=== PATIENT | female | born 1995 | race African-American/Black ===

== ENCOUNTER 2018-04-07 23:25 | Emergency (ER) | payer SELFPAY ==
[~2018-04-07] VITALS: Ht 154.9 cm; Wt 49.9 kg
[2018-04-07 23:40] VITALS: BP 118/48
[2018-04-07] MEDS ORDERED: ALBUTEROL SULF8.5 GM INH (23:55)
[2018-04-08 00:03] VITALS: BP 123/80
--- NOTE | 2018-04-08 01:23 | Emergency Room Report ---
History of Present Illness General Chief Complaint: Medical Clearance Source: Patient Present Illness HPI 22-year-old female presents ED for assisted clearance. Patient is in [employer] custody. Patient was brought to ER because she complains of a "lung problems". States that she has bronchitis. States that she coughs all the time. Denies coughing at this time. Denies history of asthma. Denies history of smoking. Denies chest pain or shortness of breath. Denies fevers or chills. No other aggravating relieving factors. Denies any other associated symptoms Allergies: Coded Allergies: No Known Allergies (Unverified , 04/07/18) Patient History Past Medical History: none Past Surgical History: none Pertinent Family History: none Social History: Denies: smoking, alcohol use, drug use Last Menstrual Period: 03/24/2018 Now: No : 0 Para: 0 Immunizations: UTD Reviewed Nursing Documentation: PMH: Agreed; PSxH: Agreed Nursing Documentation-PMH Past Medical History: No History, Except For Hx Asthma: No - Pulmonary Emboli, Bronchitis Review of Systems All Other Systems: negative except mentioned in HPI Physical Exam Vital Signs Date Time Temp Pulse Resp B/P (MAP) Pulse Ox O2 Delivery O2 Flow Rate FiO2 04/07/18 23:28 98.4 90 14 118/48 95 98.4 Sp02 EP Interpretation: reviewed, normal General Appearance: no apparent distress, alert, GCS 15, non-toxic Head: normocephalic, atraumatic Eyes: bilateral eye normal inspection, bilateral eye PERRL ENT: hearing grossly normal, normal pharynx, no angioedema, normal voice Neck: full range of motion, supple/symm/no masses Respiratory: chest non-tender, lungs clear, normal breath sounds, speaking full sentences Cardiovascular #1: regular rate, rhythm, no edema Cardiovascular #2: 2+ carotid (R), 2+ carotid (L), 2+ radial (R), 2+ radial (L) , 2+ dorsalis pedis (R), 2+ dorsalis pedis (L) Gastrointestinal: normal bowel sounds, non tender, soft, non-distended, no guarding, no rebound Rectal: deferred Genitourinary: normal inspection, no CVA tenderness Musculoskeletal: back normal, gait/station normal, normal range of motion, non- tender Neurologic: alert, oriented x3, responsive, motor strength/tone normal, sensory intact, speech normal Psychiatric: judgement/insight normal, memory normal, mood/affect normal, no suicidal/homicidal ideation Reflexes: 3+ bicep (R), 3+ bicep (L), 3+ tricep (R), 3+ tricep (L), 3+ knee (R) , 3+ knee (L) Skin: normal color, no rash, warm/dry, well hydrated Lymphatic: no adenopathy Medical Decision Making Diagnostic Impression: Primary Impression: Medical clearance for incarceration ER Course Hospital Course 22-year-old female presents to ED for and assisted clearance. c/o cough Clinical course Patient placed on stretcher. Handcuffs. After initial history, physical exam reveals a young female in no acute distress. Lungs clear. Remaining physical exam was unremarkable. I believe patient be safely discharged into police custody. We will discharge with inhaler. Diagnosis - medical clearance for incarceration stable and discharged into police custody with Rx Albuterol. Last Vital Signs Date Time Temp Pulse Resp B/P (MAP) Pulse Ox O2 Delivery O2 Flow Rate FiO2 04/07/18 23:28 98.4 90 14 118/48 95 98.4 Status: improved Disposition: HOME, SELF-CARE Condition: Stable Scripts Albuterol Sulfate* (ALBUTEROL SULFATE MDI*) 8.5 Gm Hfa.aer.ad 2 PUFF INH Q4H PRN for cough/wheezing, #1 EA 0 Refills Prov: Cale Marcano MD 04/07/18 Referrals: NOT CHOSEN IPA/,REFERRING (PCP) Departure Forms: Shelter Clearance Patient Instructions: Acute Bronchitis, [id number] Cale Marcano MD Apr 08, 2018 01:23
== END 2018-04-08 00:03 ==
LOC: EMR 23:48
DX: Z02.89 Encounter for other administrative examinations (principal); R05 Cough
CPT/HCPCS: 99282